=== PATIENT | female | born 1985 | race Two or more races ===

== ENCOUNTER 2024-12-24 09:22 | Emergency (ER) | payer OTHER ==
[~2024-12-24] VITALS: Ht 154.9 cm; Wt 56.2 kg
[2024-12-24 10:41] LABS: BASO % 0.5 % (0.1-1.2); EOS # 0.04 (0.04-0.54); EOS % 1.1 % (0.7-7.0); LYMPH # 0.67 (1.18-3.74); LYMPH % 18.2 % (19.3-53.1); MEAN PLATELET VOLUME 9.90 fl (9.4-12.4); MONO # 0.43 (0.24-0.82); MONO % 11.7 % (4.7-12.5); NEUT # 2.52 (1.56-6.13); NEUT % 68.5 % (34.0-71.1); RED CELL DISTRIBUTION WIDTH 12.4 % (11.6-14.4)
[2024-12-24 11:38] LABS: URINE APPEARANCE Clear; URINE BILIRRUBIN Negative (NEGATIVE); URINE BLOOD Negative; URINE COLOR Yellow; URINE GLUCOSE Negative (NEGATIVE); URINE KETONE Trace (NEGATIVE); URINE LEUKOCYTE Negative; URINE NITRATE Negative; URINE PROTEIN Negative (NEGATIVE); URINE UROBILINOGEN 1.0 E.U./dl
[2024-12-24 11:42] LABS: URINE BACTERIA 2558.3 uL (0.0-1933); URINE EPITHELIAL CELLS 25.3 uL (0.0-38.8); URINE RBC 18.3 uL (0.0-20.8); URINE WBC 14.1 uL (0.0-23.2)
[2024-12-24 12:21] LABS: URINE CAST 0.58 uL (0.0-1.40)
[2024-12-24 12:22] LABS: URINE CRYSTALS MODERATE /HPF
[2024-12-24] MEDS ORDERED: SURFAK240 M1 PO (18:03)
[2024-12-24] MEDS ORDERED: LEVSIN/SL0.125 MG SL (18:03)
[2024-12-24] MEDS ORDERED: PROBIOTIC1 EAC2 PO (18:03)
[2024-12-24] MEDS ORDERED: PEPCID AC20 MG PO (18:03)
== END 2024-12-24 14:25 | disposition home or self-care (01) ==
LOC: ER 09:27
PROVIDERS: Emergency Medicine
DX: R10.84 Generalized abdominal pain (principal); K59.00 Constipation, unspecified